=== PATIENT | male | born 1995 | race Caucasian/White ===

== ENCOUNTER 2018-06-23 14:55 | Emergency (ER) | payer SELFPAY ==
[2018-06-23 15:11] VITALS: TEMP 96.9
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
--- NOTE | 2018-06-23 15:50 | CT ---
EXAM DESCRIPTION: Head CLINICAL HISTORY: syncope COMPARISON: None available TECHNIQUE: Noncontrast head CT was performed with routine protocol. FINDINGS: Normal elena-white matter differentiation. Ventricles and sulci are normal for age. Linear high density over the right posterior frontal lobe (axial images 49 through 51) could represent a very small subdural hematoma but this is thought unlikely without overlying soft tissue swelling or history of trauma. Clinical correlation recommended. Streak artifact commonly occurs in this area related to dense calvarium in young patients. If the patient has had head trauma, MRI might be helpful for further evaluation. No calvarial fracture. No high density intraparenchymal hemorrhage, focal edema or shift of the midline. No sulcal effacement. Normal orbital contents. Basilar cisterns appear clear. Intact calvarium with no fracture or lytic lesion. Normal aeration of tympanic cavities and mastoid air cells. No fluid levels in the paranasal sinuses. Skull base appears intact. Symmetrical internal auditory canals. IMPRESSION: Linear density over the right posterior frontal convexity with artifact favored over small subdural hematoma. See above. This exam was performed according to our departmental dose-optimization program, which includes automated exposure control, adjustment of the mA and/or kV according to patient size and/or use of iterative reconstruction technique. Total DLP equals 859.97 mGycm. Electronically signed by: Fredo Garrido MD 06/23/2018 3:49 PM [facility]
[2018-06-23 16:30] VITALS: BP 137/78; O2SAT 100
== END 2018-06-23 16:29 | disposition home or self-care (01) ==
LOC: ER 14:55
DX: R55 Syncope and collapse (principal); J45.909 Unspecified asthma, uncomplicated